=== PATIENT | male | born 2000 | race Two or more races ===

== ENCOUNTER 2019-06-19 01:07 | Emergency (ER) | payer OTHER ==
[2019-06-19] MEDS ORDERED: MORPHINE 4 MG/ML 1ML VIAL/SYRINGE (J2270) As Ordered ONE (01:17)
[2019-06-19] MEDS ORDERED: ISOVUE-370 76% 100ML VIAL (Q9967) As Ordered ONE (01:25)
[2019-06-19 01:27] LABS: BASO # 0.1 10^3/uL (0.0-0.2); BASO % 0.6 % (0.0-1.0); EOS # 0.2 10^3/uL (0.0-0.5); EOS % 1.9 % (0.0-3.0); HEMATOCRIT 46.8 % (42.0-52.0); HEMOGLOBIN 15.8 g/dl (13.5-17.5); LYMPH # 3.6 10^3/uL (1.5-5.0); LYMPH % 43.2 % (24.0-44.0); MEAN CORPUSCULAR HEMOGLOBIN 29.6 pg (27.0-33.0); MEAN CORPUSCULAR HGB CONC 33.8 g/dl (32.0-36.5); MEAN CORPUSCULAR VOLUME 87.8 fl (80.0-96.0); MONO # 0.7 10^3/uL (0.0-0.8); MONO % 8.4 % (0.0-5.0); NEUTROPHILS # 3.8 10^3/uL (1.5-8.5); NEUTROPHILS % 45.8 % (36.0-66.0); PLATELET COUNT, AUTOMATED 264 10^3/uL (150-450); RED BLOOD COUNT 5.33 10^6/uL (4.30-6.10); WHITE BLOOD COUNT 8.2 10^3/uL (4.0-10.0)
[2019-06-19] MEDS ORDERED: ceFAZolin SOD 2 GM in IV 1 EA IV ONE (01:30)
[2019-06-19] MEDS ORDERED: MORPHINE 4 MG/ML 1ML VIAL/SYRINGE (J2270) IV ONE ×2 (01:30)
[2019-06-19] MEDS ORDERED: NS 1,000 ML IV ONE (01:30)
[2019-06-19 01:42] LABS: INR 1.11; PARTIAL THROMBOPLASTIN TIME 26.5 SECONDS (25.0-38.4)
[2019-06-19 01:45] LABS: BLOOD UREA NITROGEN 12 MG/DL (7-18); CALCIUM LEVEL 9.4 MG/DL (8.5-10.1); CARBON DIOXIDE LEVEL 23 MEQ/L (21-32); CHLORIDE LEVEL 106 MEQ/L (98-107); CREATININE FOR GFR 1.15 MG/DL (0.70-1.30); GLUCOSE, FASTING 117 MG/DL (70-100); POTASSIUM SERUM 3.4 MEQ/L (3.5-5.1); SODIUM LEVEL 141 MEQ/L (136-145)
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
[2019-06-19] MEDS ORDERED: AUGM500T34 PO (02:35)
[2019-06-19] MEDS ORDERED: VICO5TAB17 PO (02:36)
[2019-06-19 02:45] VITALS: BP 137/81
[2019-06-19] MEDS ORDERED: NORCO 5/325MG TABLET (BULK FOR ED) PO ONE (02:45)
[2019-06-20] MEDS ORDERED: NORC1TAB7 PO (16:18)
== END 2019-06-19 03:38 | disposition home or self-care (01) ==
LOC: M ED 01:07
DX: S71.132A Puncture wound without foreign body, left thigh, initial encounter (principal); S30.811A Abrasion of abdominal wall, initial encounter; X95.9XXA Assault by unspecified firearm discharge, initial encounter; Y92.89 Other specified places as the place of occurrence of the external cause
CPT/HCPCS: 73701; 74177; 80048; 85025; 85610; 85730; 96365; 96375; 96376; 99284; J0690; J2270; Q9967

== ENCOUNTER 2019-06-20 15:24 | Emergency (ER) | payer OTHER ==
[~2019-06-20] VITALS: Ht 175.3 cm; Wt 87.5 kg
[~2019-06-20 15:24] MED LIST: AUGM500T34 PO; VICO5TAB17 PO
[2019-06-20] MEDS ORDERED: NORC1TAB7 PO (16:18)
[2019-06-20] MEDS ORDERED: NORCO, ANEXSIA 5/325MG TABLET (HYDROcodone/ACETAMINOPHEN) PO ONE (16:30)
[2019-06-20 16:36] VITALS: BP 112/62
== END 2019-06-20 16:37 | disposition home or self-care (01) ==
LOC: M ED 15:24
DX: Z76.0 Encounter for issue of repeat prescription (principal); S71.132A Puncture wound without foreign body, left thigh, initial encounter; X95.9XXA Assault by unspecified firearm discharge, initial encounter; Y92.9 Unspecified place or not applicable

== ENCOUNTER 2019-06-22 17:41 | Emergency (ER) | payer OTHER ==
[~2019-06-22] VITALS: Ht 175.3 cm; Wt 86.5 kg
[2019-06-22 17:41] VITALS: BP 133/67
[~2019-06-22 17:41] MED LIST changes: +NORC1TAB7 PO
[2019-06-22] MEDS ORDERED: AMOX500T2 (17:50)
[2019-06-22 19:39] LABS: HEMATOCRIT 44.9 % (42.0-52.0); HEMOGLOBIN 14.9 g/dl (13.5-17.5); MEAN CORPUSCULAR HEMOGLOBIN 29.4 pg (27.0-33.0); MEAN CORPUSCULAR HGB CONC 33.2 g/dl (32.0-36.5); MEAN CORPUSCULAR VOLUME 88.6 fl (80.0-96.0); PLATELET COUNT, AUTOMATED 226 10^3/uL (150-450); RED BLOOD COUNT 5.07 10^6/uL (4.30-6.10); WHITE BLOOD COUNT 6.5 10^3/uL (4.0-10.0)
[2019-06-22 19:59] LABS: BLOOD UREA NITROGEN 9 MG/DL (7-18); CALCIUM LEVEL 9.5 MG/DL (8.5-10.1); CARBON DIOXIDE LEVEL 30 MEQ/L (21-32); CHLORIDE LEVEL 105 MEQ/L (98-107); CREATININE FOR GFR 0.86 MG/DL (0.70-1.30); GLUCOSE, FASTING 87 MG/DL (70-100); POTASSIUM SERUM 4.3 MEQ/L (3.5-5.1); SODIUM LEVEL 141 MEQ/L (136-145)
== END 2019-06-22 20:32 | disposition home or self-care (01) ==
LOC: M ED 17:41
DX: Z48.00 Encounter for change or removal of nonsurgical wound dressing (principal)